=== PATIENT | male | born 1985 | race Caucasian/White ===

== ENCOUNTER 2016-07-29 12:57 | Emergency (ER) | payer BC ==
[~2016-07-29] VITALS: Ht 180.3 cm; Wt 78.5 kg
[~2016-07-29 12:57] MED LIST: AMOX1TAB10 PO; LISI10TA2 PO; OMEP-10 PO; ONDA-42 SL; OXC10TCR PO; PANT20TA3 PO; PRD20T PO; SULF1TAB35 PO; ZOLP12.541 PO
[2016-07-29 13:19] VITALS: BP 136/92
[2016-07-29 14:14] LABS: BASOPHILS % (AUTO) 1 % (0-10); EOSINOPHILS % (AUTO) 1 % (0-10); LYMPHOCYTES # (AUTO) 1.1 X 10^3 (1.0-4.0); LYMPHOCYTES % (AUTO) 36 % (12-44); MEAN CORPUSCULAR HEMOGLOBIN 34 PG (25-34); MEAN CORPUSCULAR HGB CONC 37 G/DL (32-36); MEAN CORPUSCULAR VOLUME 92 FL (80-99); MEAN PLATELET VOLUME 10.3 FL (7.4-10.4); MONOCYTES # (AUTO) 0.5 X 10^3 (0.0-1.0); MONOCYTES % (AUTO) 16 % (0-12); NEUTROPHILS # (AUTO) 1.4 X 10^3 (1.8-7.8); NEUTROPHILS % (AUTO) 46 % (42-75); PLATELET COUNT 125 10^3/uL (130-400); RED BLOOD COUNT 4.69 10^6/uL (4.35-5.85); RED CELL DISTRIBUTION WIDTH 12.1 % (10.0-14.5); WHITE BLOOD COUNT 3.1 10^3/uL (4.3-11.0)
[2016-07-29 14:26] LABS: INR 1.1 (0.8-1.4); PROTHROMBIN TIME PATIENT 13.7 SEC (12.2-14.7)
[2016-07-29 14:32] LABS: BILIRUBIN,URINE NEGATIVE (NEGATIVE); KETONES,URINE NEGATIVE (NEGATIVE); LEUKOCYTE ESTERASE ,URINE NEGATIVE (NEGATIVE); NITRITE,URINE NEGATIVE (NEGATIVE); PH,URINE 6 (5-9); PROTEIN,URINE 1+ (NEGATIVE); UROBILINOGEN,URINE NORMAL (NORMAL)
[2016-07-29 14:34] LABS: ALANINE AMINOTRANSFERASE 228 U/L (0-55); ALBUMIN 3.6 G/DL (3.2-4.5); AMYLASE 67 U/L (25-125); ANION GAP 16 MMOL/L (5-14); ASPARTATE AMINO TRANSFERASE 615 U/L (5-34); BILIRUBIN,TOTAL 1.7 MG/DL (0.1-1.0); BLOOD UREA NITROGEN 7 MG/DL (7-18); BUN/CREATININE RATIO 9; CALCIUM 8.9 MG/DL (8.5-10.1); CARBON DIOXIDE 21 MMOL/L (21-32); CHLORIDE 92 MMOL/L (98-107); CREATINE KINASE 260 U/L (30-200); CREATININE SERUM 0.74 MG/DL (0.60-1.30); GFR ESTIMATED > 60; GLUCOSE 102 MG/DL (70-105); LIPASE 122 U/L (8-78); MAGNESIUM 2.9 MG/DL (1.8-2.4); SODIUM 129 MMOL/L (135-145); TOTAL PROTEIN 8.6 G/DL (6.4-8.2)
[2016-07-29 14:42] LABS: POTASSIUM 3.5 MMOL/L (3.6-5.0)
[2016-07-29 14:47] LABS: SQUAMOUS EPITHELIAL CELL,UR 0-2 /HPF
[2016-07-29] MEDS: NS IV 1000 ML 1,000 ML IV ONE (15:13)
[2016-07-29 15:48] LABS: ALCOHOL 257 MG/DL (<10)
--- NOTE | 2016-07-29 16:12 | ED General ---
General Chief Complaint: General Problems/Pain Stated Complaint: FATIGUE,DIZZINESS,BONE PAIN/MULTIPLE COMPLAINTS Nursing Triage Note: PT STATES HX OF TIA'S WITH LOSS OF VISION AND CHEST DISCOMFORT ABOUT 3 MONTHS AGO. 3 WEEKS AGO HAD EPISODE OF VISION LOSS AND FELT PARALIZED FROM THE WAIST DOWN. TODAY STATES LT EYE VISON "GOES BROWN" AND FEELS SOMETHING IN HIS EYE AND CAN'T DRIVE AT NIGHT BECAUSE HE LOOSES VISION IN LT EYE. STATES EXTREME FATIGUE AND DISORIENTED. LAST NIGHT PT FELL AND JUST SLEPT ON THE FLOOR, DID NOT TRY TO GET UP BECAUSE HIS LOWER EXTREMITIES HURT. PT HAS HAD "LOTS" OF TICK BITES, HX OF CHARLY MOUT[place] SPOTTED FEVER ABOUT A YR AGO. PT HAS LOST OVER 60 LBS IN THE LAST YR. PT TALKING REAL SLOW, PASSED A "LARGE AMOUNT" OF BLOOD IN HIS STOOL A FEW TIMES IN THE LAST COUPLE DAYS. Nursing Sepsis Screen: No Definite Risk Source of Information: Patient, Family Exam Limitations: Intoxication History of Present Illness Time Seen by Provider: 13:09 Initial Comments Mr. Doherty presents to the emergency room with multiple complaints including intermittent episodes of left eye visual disturbances, disorientation, lower extremity weakness, disequilibrium, diffuse pain throughout the lower extremities, new appearance of varicose veins in his feet and ankles, extreme fatigue, and dystaxic movements. Patient has visited his eye doctor but reports no definite pathology identified. He reports Dr. Lora has seen him in the outpatient setting. He reports labs have been relatively normal except for abnormal liver enzymes or hepatitis. Patient reports being tentatively diagnosed with TIAs. These episodes have been recurrent over about a 3 month period of time. Last night he had an episode of weakness and collapsed to the floor. He laid on the floor for an extended period of time. He denied any traumatic injury. He has had a significant weight loss of about 65 pounds over the last year. He reports this is intentional and secondary to dietary changes. His was concerned about the extensive amount of weight loss in that amount of time. Patient admits to daily beer consumption in the range of 10-30 beers per day. He reports cutting back to about 10-15 beers in recent weeks. There is some disagreement in the room between the patient and his regarding quantity. Allergies and Home Medications Allergies Coded Allergies: No Known Drug Allergies (Unverified , 10/25/10) Home Medications Lactulose 20 Gm/30 Ml Solution, 20 GM PO TID, #1000 Prescribed by: RORY MCKEON on 07/29/16 1615 Lisinopril 10 Mg Tablet, 10 MG PO DAILY, #30 Ref 0 Prescribed by: LISA NAJERA on 05/25/15 1338 Oxycodone HCl 10 Mg Tab.er.12h, 10 MG PO Q12H PRN for PAIN, #10 Ref 0 Prescribed by: LISA NAJERA on 05/25/15 1338 Pantoprazole Sodium 20 Mg Tablet.dr, 20 MG PO DAILY, (Reported) Prednisone 20 Mg Tab, 40 MG PO DAILY, #12 Ref 0 Prescribed by: LISA NAJERA on 05/25/15 1338 Zolpidem Tartrate 12.5 Mg Tab.mphase, 12.5 MG PO HS, (Reported) Constitutional: see HPI EENTM: see HPI Respiratory: no symptoms reported Cardiovascular: see HPI Gastrointestinal: no symptoms reported Genitourinary: no symptoms reported Musculoskeletal: see HPI Skin: no symptoms reported Psychiatric/Neurological: See HPI Hematologic/Lymphatic: No Symptoms Reported Immunological/Allergic: no symptoms reported Past Dgqcsvk-Kyufuo-Cuxwnf Hx Patient Social History Alcohol Use: Regular Use Recreational Drug Use: No Smoking Status: Former Smoker Type Used: Cigarettes Former Smoker/When Quit: Apr 27, 2010 Recent Foreign Travel: No Contact w/Someone Who Travel: No Recent Infectious Disease Expo: No Recent Hopitalizations: No Seasonal Allergies Seasonal Allergies: Yes Surgeries HX Surgeries: Yes Surgeries: Orthopedic Respiratory Hx Respiratory Disorders: No Cardiovascular Hx Cardiac Disorders: Yes Cardiac Disorders: Hypertension, Irregular Heartbeat Neurological Hx Neurological Disorders: Yes Neurological Disorders: Spinal Cord Injury, TIA Genitourinary Hx Genitourinary Disorders: No Gastrointestinal Hx Gastrointestinal Disorders: Yes Gastrointestinal Disorders: Gastroesophageal Reflux, Hepatitis (alcoholic), Irritable Bowel Musculoskeletal Hx Musculoskeletal Disorders: Yes Musculoskeletal Disorders: Chronic Back Pain Endocrine Hx Endocrine Disorders: No HEENT HX ENT Disorders: No Loss of Vision: Left Cancer Hx Cancer: No Psychosocial Hx Psychiatric Problems: Yes (DEPRESSION WHEN YOUNGER, alcoholism) Behavioral Health Disorders: Depression Integumentary HX Skin/Integumentary Disorder: No Blood Transfusions Hx Blood Disorders: No Family Medical History Significant Family History: No Pertinent Family Hx Physical Exam Vital Signs Vital Sign - Last 12Hours 07/29/16 13:19 Temp 99.1 Pulse 76 Resp 18 B/P (MAP) 136/92 Pulse Ox 98 O2 Delivery Room Air Capillary Refill : Less Than 3 Seconds General Appearance: No Apparent Distress, WD/WN HEENT: PERRL/EOMI, TMs Normal, Normal ENT Inspection, Pharynx Normal, Other ( funduscopic exam normal to the extent that could be performed. Scleral injection and conjunctival erythema) Neck: Normal Inspection Respiratory: Lungs Clear, Normal Breath Sounds, No Accessory Muscle Use, No Respiratory Distress Cardiovascular: Regular Rate, Rhythm, No Edema, No Murmur Gastrointestinal: Normal Bowel Sounds, No Organomegaly, Soft, Tenderness (mild in the epigastrium and left upper quadrant) Extremity: No Pedal Edema, Other (small varicosities and ankles) Neurologic/Psychiatric: Alert, Oriented x3, Motor Weakness (diffuse generalized weakness), Other (relatively normal gait, able to ambulate to the room on his own power, subtle dystonic/dystaxic movements on exam, dulled cognition with slow and slightly slurred speech) Skin: Normal Color, Warm/Dry Progress/Results/Core Measures Results/Orders Lab Results Laboratory Tests Test 07/29/16 14:00 07/29/16 14:09 07/29/16 14:25 07/29/16 15:16 Range/Units White Blood Count 3.1 L 4.3-11.0 10^3/uL Red Blood Count 4.69 4.35-5.85 10^6/uL Hemoglobin 15.9 13.3-17.7 G/DL Hematocrit 43 40-54 % Mean Corpuscular Volume 92 80-99 FL Mean Corpuscular Hemoglobin 34 25-34 PG Mean Corpuscular Hemoglobin Concent 37 H 32-36 G/DL Red Cell Distribution Width 12.1 10.0-14.5 % Platelet Count 125 L 130-400 10^3/uL Mean Platelet Volume 10.3 7.4-10.4 FL Neutrophils (%) (Auto) 46 42-75 % Lymphocytes (%) (Auto) 36 12-44 % Monocytes (%) (Auto) 16 H 0-12 % Eosinophils (%) (Auto) 1 0-10 % Basophils (%) (Auto) 1 0-10 % Neutrophils # (Auto) 1.4 L 1.8-7.8 X 10^3 Lymphocytes # (Auto) 1.1 1.0-4.0 X 10^3 Monocytes # (Auto) 0.5 0.0-1.0 X 10^3 Eosinophils # (Auto) 0.0 0.0-0.3 10^3/uL Basophils # (Auto) 0.0 0.0-0.1 10^3/uL Prothrombin Time 13.7 12.2-14.7 SEC INR Comment 1.1 0.8-1.4 Activated Partial Thromboplast Time 32 24-35 SEC Sodium Level 129 L 135-145 MMOL/L Potassium Level 3.5 L 3.6-5.0 MMOL/L Chloride Level 92 L 98-107 MMOL/L Carbon Dioxide Level 21 21-32 MMOL/L Anion Gap 16 H 5-14 MMOL/L Blood Urea Nitrogen 7 7-18 MG/DL Creatinine 0.74 0.60-1.30 MG/DL Estimat Glomerular Filtration Rate > 60 BUN/Creatinine Ratio 9 Glucose Level 102 70-105 MG/DL Calcium Level 8.9 8.5-10.1 MG/DL Magnesium Level 2.9 H 1.8-2.4 MG/DL Total Bilirubin 1.7 H 0.1-1.0 MG/DL Aspartate Amino Transf (AST/SGOT) 615 H 5-34 U/L Alanine Aminotransferase (ALT/SGPT) 228 H 0-55 U/L Alkaline Phosphatase 83 40-136 U/L Total Creatine Kinase 260 H 30-200 U/L Total Protein 8.6 H 6.4-8.2 G/DL Albumin 3.6 3.2-4.5 G/DL Amylase Level 67 25-125 U/L Lipase 122 H 8-78 U/L TSH Story Testing 1.46 0.35-4.94 UIU/ML Serum Alcohol 257 H <10 MG/DL Glucometer 101 70-110 MG/DL Urine Color YELLOW Urine Clarity CLEAR Urine pH 6 5-9 Urine Specific [place] 1.010 L 1.016-1.022 Urine Protein 1+ H NEGATIVE Urine Glucose (UA) NEGATIVE NEGATIVE Urine Ketones NEGATIVE NEGATIVE Urine Nitrite NEGATIVE NEGATIVE Urine Bilirubin NEGATIVE NEGATIVE Urine Urobilinogen NORMAL NORMAL MG/DL Urine Leukocyte Esterase NEGATIVE NEGATIVE Urine RBC (Auto) NEGATIVE NEGATIVE Urine RBC 0-2 /HPF Urine WBC NONE /HPF Urine Squamous Epithelial Cells 0-2 /HPF Urine Crystals NONE /LPF Urine Bacteria NEGATIVE /HPF Urine Casts NONE /LPF Urine Mucus NEGATIVE /LPF Urine Culture Indicated NO Urine Opiates Screen POSITIVE H NEGATIVE Urine Oxycodone Screen NEGATIVE NEGATIVE Urine Methadone Screen NEGATIVE NEGATIVE Urine Propoxyphene Screen NEGATIVE NEGATIVE Urine Barbiturates Screen NEGATIVE NEGATIVE Ur Tricyclic Antidepressants Screen NEGATIVE NEGATIVE Urine Phencyclidine Screen NEGATIVE NEGATIVE Urine Amphetamines Screen NEGATIVE NEGATIVE Urine Methamphetamines Screen NEGATIVE NEGATIVE Urine Benzodiazepines Screen NEGATIVE NEGATIVE Urine Cocaine Screen NEGATIVE NEGATIVE Urine Cannabinoids Screen NEGATIVE NEGATIVE Triglycerides Level 3785 H <150 MG/DL Cholesterol Level 600 H < 200 MG/DL LDL Cholesterol Direct 64 1-129 MG/DL VLDL Cholesterol 757 H 5-40 MG/DL HDL Cholesterol 16 L 40-60 MG/DL My Orders Orders - RORY DOYLE MD Cbc With Automated Diff (07/29/16 13:08) Comprehensive Metabolic Panel (07/29/16 13:08) Ua Culture If Indicated (07/29/16 13:08) Saline Lock/Iv-Start (07/29/16 13:08) Alcohol (07/29/16 13:38) Amylase (07/29/16 13:38) Creatine Kinase (07/29/16 13:38) Drug Screen Stat (Urine) (07/29/16 13:38) Lipase (07/29/16 13:38) Magnesium (07/29/16 13:38) Protime With Inr (07/29/16 13:38) Partial Thromboplastin Time (07/29/16 13:38) Thyroid Analyzer (07/29/16 13:38) Ammonia (07/29/16 13:56) Accucheck Stat ONCE (07/29/16 14:06) Ns Iv 1000 Ml (Sodium Chloride 0.9%) (07/29/16 15:05) Lipid Panel (07/29/16 16:34) Medications Given in ED Current Medications Medications Dose Ordered Sig/Lilli Route Start Time Stop Time Status Last Admin Dose Admin Sodium Chloride 1,000 ml @ 0 mls/hr Q0M ONCE IV 07/29/16 15:05 07/29/16 15:06 DC 07/29/16 15:13 1,000 MLS/HR Vital Signs/I&O Vital Sign - Last 12Hours 07/29/16 13:19 Temp 99.1 Pulse 76 Resp 18 B/P (MAP) 136/92 Pulse Ox 98 O2 Delivery Room Air Blood Pressure Mean: 107 Point of Care Testing Finger Stick Blood Glucose: 101 Blood Glucose Action Taken: DR ROLDAN Progress Note #1: Progress Note Patient received a liter of normal saline and was already improving after infusion was complete. Patient was strongly advised to be admitted for further treatment and monitoring of his labs. Risks of returning home were discussed at length. Patient has several alcohol related health problems which could potentially become very serious. Patient expressed understanding but declined admission. Lactulose was prescribed for him to start at home. Patient was advised that abrupt cessation of alcohol could be very dangerous and possibly life-threatening. Both short-term and long-term risks and consequences of continued alcohol abuse were discussed with patient and family. Family strongly encouraged patient to be admitted and they were naturally very concerned. Admission was arranged with Dr. Lainez. Progress Note #2: Time: 16:26 Progress Note Patient left AGAINST MEDICAL ADVICE. After he departed, lab called to state that the difficulty with dilution on the ammonia test appears to be related to lipemia. If the blood is diluted out enough to read past the lipemia, then the ammonia is too diluted to detect. A specimen will be sent to [place] for further evaluation. No definite quantification of ammonia could be provided at this time. Departure Impression Impression: Primary Impression: Hepatic encephalopathy Additional Impressions: Hyponatremia Rhabdomyolysis Qualified Codes: M62.82 - Rhabdomyolysis Alcoholic hepatitis Qualified Codes: K70.10 - Alcoholic hepatitis without ascites Alcoholism Pancreatitis Qualified Codes: K85.20 - Alcohol induced acute pancreatitis without necrosis or infection Hyperlipidemia Qualified Codes: E78.5 - Hyperlipidemia, unspecified Disposition: 07 AGAINST MEDICAL ADVICE Condition: Against Medical Advice Departure-Patient Inst. Referrals: ABE LORA MD (PCP/Family) Primary Care Physician Patient Instructions: Alcohol Abuse and Alcoholism (DC), Hepatic Encephalopathy , Hyponatremia, Pancreatitis Scripts Lactulose (Lactulose) 20 Gm/30 Ml Solution 20 GM PO TID, #1000 EA Prov: RORY DOYLE MD 07/29/16 Copy Copies To 1: ABE LORA MD, JOSHUA T MD Jul 29, 2016 16:12
[2016-07-29] MEDS ORDERED: LACT20SO2 PO (16:15)
[2016-07-29 16:49] LABS: CHOLESTEROL 600 MG/DL (< 200); DIRECT LDL 64 MG/DL (1-129)
[2016-07-29 16:56] LABS: TRIGLYCERIDES 3785 MG/DL (<150); VLDL CHOLESTEROL 757 MG/DL (5-40)
== END 2016-07-29 16:20 | disposition left against medical advice (07) ==
LOC: EDUNIT# 12:57 → ER 13:00
DX: K70.40 Alcoholic hepatic failure without coma (principal); E87.1 Hypo-osmolality and hyponatremia; M62.82 Rhabdomyolysis; K70.10 Alcoholic hepatitis without ascites; E78.5 Hyperlipidemia, unspecified; F10.229 Alcohol dependence with intoxication, unspecified; K85.20 Alcohol induced acute pancreatitis without necrosis or infection; I10 Essential (primary) hypertension; Z79.899 Other long term (current) drug therapy; Y90.8 Blood alcohol level of 240 mg/100 ml or more
CPT/HCPCS: 36415; 80053; 80061; 80306; 80320; 81000; 82140; 82150; 82550; 82962; 83690; 83735; 84443; 85025; 85610; 85730

== ENCOUNTER 2017-06-06 13:52 | Emergency (ER) | payer BC ==
[~2017-06-06] VITALS: Ht 180.3 cm; Wt 99.8 kg
[~2017-06-06 13:52] MED LIST changes: +LACT20SO2 PO
--- OUTSIDE RECORDS SUMMARY | 2017-06-06 13:57 | XMS REPORT | Continuity of Care Document ---
Author Author [facility] Organization [facility] Address Unknown Phone Unavailable Allergies Active Description Code Type Severity Reaction Onset Reported/Identified Relationship to Patient Clinical Status Yes No Known Drug Allergies [id number] Drug Allergy Unknown N/A 10/25/2010 Medications There is no data. 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 10/25/2010 Ot E000.8 OTHER EXTERNAL CAUSE STATUS 10/25/2010 Ot E849.0 ACCIDENT IN HOME 10/25/2010 Ot E914 FB ENTERING EYE 06/19/2013 BEAU SCHERER DO Ot 305.00 ALCOHOL ABUSE-UNSPEC 06/19/2013 BEAU SCHERER DO Ot 599.0 URIN TRACT INFECTION NOS 06/19/2013 BEAU SCHERER DO Ot 787.01 NAUSEA WITH VOMITING 06/09/2014 Ot 723.1 06/09/2014 Ot 724.1 06/10/2014 Ot 723.1 06/10/2014 Ot 724.1 06/17/2014 Ot 723.1 06/17/2014 Ot 724.1 07/11/2014 Ot 723.1 07/11/2014 Ot 724.1 05/25/2015 Ot 723.1 05/25/2015 Ot 724.1 05/25/2015 LISA NAJERA MD Ot F10.239 ALCOHOL DEPENDENCE WITH WITHDRAWAL, UNSP 05/25/2015 LISA NAJERA MD Ot I10 ESSENTIAL (PRIMARY) HYPERTENSION 05/25/2015 LISA NAJERA MD Ot M54.12 RADICULOPATHY, CERVICAL REGION 05/25/2015 LISA NAJERA MD Ot M54.16 RADICULOPATHY, LUMBAR REGION 05/25/2015 LISA NAJERA MD Ot Z87.891 PERSONAL HISTORY OF NICOTINE DEPENDENCE 05/26/2015 LISA NAJERA MD Ot F10.239 05/26/2015 DANIA HICKEY, LISA D Ot I10 05/26/2015 DANIA HICKEY, LISA D Ot M54.12 05/26/2015 DANIA HICKEY, LISA D Ot M54.16 05/26/2015 DANIA HICKEY, LISA D Ot Z87.891 06/05/2015 DANIA HICKEY, LISA D Ot F10.239 06/05/2015 DANIA HICKEY, LISA D Ot I10 06/05/2015 DANIA HICKEY, LISA D Ot M54.12 06/05/2015 DANIA HICKEY, LISA D Ot M54.16 06/05/2015 DANIA HICKEY, LISA D Ot Z87.891 07/14/2015 ABE CARUSO MD Ot M54.2 CERVICALGIA 07/14/2015 ABE CARUSO MD Ot M54.5 LOW BACK PAIN 07/14/2015 ABE CARUSO MD Ot M54.6 PAIN IN THORACIC SPINE 07/29/2015 ABE CARUSO MD Ot M54.2 CERVICALGIA 07/29/2015 ABE CARUSO MD Ot M54.5 LOW BACK PAIN 07/29/2015 ABE CARUSO MD Ot M54.6 PAIN IN THORACIC SPINE 12/23/2015 CRISELDA ROMERO MD Ot M54.6 PAIN IN THORACIC SPINE 12/24/2015 ABE CARUSO MD Ot M54.2 CERVICALGIA 12/24/2015 ABE CARUSO MD Ot M54.5 LOW BACK PAIN 12/24/2015 ABE CARUSO MD Ot M54.6 PAIN IN THORACIC SPINE 12/24/2015 CRISELDA ROMERO MD Ot M54.6 PAIN IN THORACIC SPINE 12/28/2015 CRISELDA ROMERO MD Ot M54.6 PAIN IN THORACIC SPINE 01/07/2016 CRISELDA ROMERO MD Ot M54.6 PAIN IN THORACIC SPINE 03/17/2016 BAE CARUSO MD Ot M54.2 CERVICALGIA 03/17/2016 ABE CARUSO MD Ot M54.5 LOW BACK PAIN 03/17/2016 ABE CARUSO MD Ot M54.6 PAIN IN THORACIC SPINE 03/17/2016 CRISELDA ROMERO MD Ot M54.6 PAIN IN THORACIC SPINE 03/22/2016 ABE CARUSO MD Ot M54.2 CERVICALGIA 03/22/2016 ABE CARUSO MD Ot M54.5 LOW BACK PAIN 03/22/2016 ABE CARUSO MD Ot M54.6 PAIN IN THORACIC SPINE 03/22/2016 CRISELDA ROMERO MD Ot M54.6 PAIN IN THORACIC SPINE 07/29/2016 ABE CARUSO MD Ot M54.2 CERVICALGIA 07/29/2016 ABE CARUSO MD Ot M54.5 LOW BACK PAIN 07/29/2016 ABE CARUSO MD Ot M54.6 PAIN IN THORACIC SPINE 07/29/2016 CRISELDA ROMERO MD Ot M54.6 PAIN IN THORACIC SPINE 07/29/2016 RORY DOYLE MD Ot E78.5 HYPERLIPIDEMIA, UNSPECIFIED 07/29/2016 RORY DOYLE MD Ot E87.1 HYPO-OSMOLALITY AND HYPONATREMIA 07/29/2016 RORY DOYLE MD Ot F10.229 ALCOHOL DEPENDENCE WITH INTOXICATION, UN 07/29/2016 RORY DOYLE MD Ot I10 ESSENTIAL (PRIMARY) HYPERTENSION 07/29/2016 RORY DOYLE MD Ot K70.10 ALCOHOLIC HEPATITIS WITHOUT ASCITES 07/29/2016 RORY DOYLE MD Ot K70.40 ALCOHOLIC HEPATIC FAILURE WITHOUT COMA 07/29/2016 RORY DOYLE MD Ot K85.20 ALCOHOL INDUCED ACUTE PANCREATITIS WITHO 07/29/2016 RORY DOYLE MD Ot M62.82 RHABDOMYOLYSIS 07/29/2016 RORY DOYLE MD Ot R53.83 OTHER FATIGUE 07/29/2016 RORY DOYLE MD Ot Y90.8 BLOOD ALCOHOL LEVEL OF 240 MG/100 ML OR 07/29/2016 RORY DOYLE MD Ot Z79.899 OTHER [facility] (CURRENT) DRUG THERAPY 07/31/2016 RORY DOYLE MD Ot E78.5 HYPERLIPIDEMIA, UNSPECIFIED 07/31/2016 RORY DOYLE MD Ot E87.1 HYPO-OSMOLALITY AND HYPONATREMIA 07/31/2016 RORY DOYLE MD Ot F10.229 ALCOHOL DEPENDENCE WITH INTOXICATION, UN 07/31/2016 RORY DOYLE MD Ot I10 ESSENTIAL (PRIMARY) HYPERTENSION 07/31/2016 RORY DOYLE MD Ot K70.10 ALCOHOLIC HEPATITIS WITHOUT ASCITES 07/31/2016 RORY DOYLE MD Ot K70.40 ALCOHOLIC HEPATIC FAILURE WITHOUT COMA 07/31/2016 RORY DOYLE MD Ot K85.20 ALCOHOL INDUCED ACUTE PANCREATITIS WITHO 07/31/2016 RORY DOYLE MD Ot M62.82 RHABDOMYOLYSIS 07/31/2016 RORY DOYLE MD Ot R53.83 OTHER FATIGUE 07/31/2016 RORY DOYLE MD Ot Y90.8 BLOOD ALCOHOL LEVEL OF 240 MG/100 ML OR 07/31/2016 RORY DOYLE MD Ot 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 07/31/2016 RORY DOYLE MD Ot E78.5 HYPERLIPIDEMIA, UNSPECIFIED 07/31/2016 RORY DOYLE MD Ot E87.1 HYPO-OSMOLALITY AND HYPONATREMIA 07/31/2016 RORY DOYLE MD Ot F10.229 ALCOHOL DEPENDENCE WITH INTOXICATION, UN 07/31/2016 RORY DOYLE MD Ot I10 ESSENTIAL (PRIMARY) HYPERTENSION 07/31/2016 RORY DOYLE MD Ot K70.10 ALCOHOLIC HEPATITIS WITHOUT ASCITES 07/31/2016 RORY DOYLE MD Ot K70.40 ALCOHOLIC HEPATIC FAILURE WITHOUT COMA 07/31/2016 RORY DOYLE MD Ot K85.20 ALCOHOL INDUCED ACUTE PANCREATITIS WITHO 07/31/2016 RORY DOYLE MD Ot M62.82 RHABDOMYOLYSIS 07/31/2016 RORY DOYLE MD Ot R53.83 OTHER FATIGUE 07/31/2016 RORY DOYLE MD Ot Y90.8 BLOOD ALCOHOL LEVEL OF 240 MG/100 ML OR 07/31/2016 RORY DOYLE MD Ot Z79.899 OTHER [facility] (CURRENT) DRUG THERAPY 01/11/2017 ZULY HICKEY, ABE Little Ot M54.2 CERVICALGIA 01/11/2017 ABE CARUSO MD, Ot M54.5 LOW BACK PAIN 01/11/2017 ABE CARUSO MD Ot M54.6 PAIN IN THORACIC SPINE 01/11/2017 CRISELDA ROMERO MD Ot M54.6 PAIN IN THORACIC SPINE Procedures There is no data. Results Test Result Range Complete blood count (CBC) with automated white blood cell (WBC) differential - 07/29/16 14:00 Blood leukocytes automated count (number/volume) 3.1 10*3/uL 4.3-11.0 Blood erythrocytes automated count (number/volume) 4.69 10*6/uL 4.35-5.85 Venous blood hemoglobin measurement (mass/volume) 15.9 g/dL 13.3-17.7 Blood hematocrit (volume fraction) 43 % 40-54 Automated erythrocyte mean corpuscular volume 92 [foz_us] 80-99 Automated erythrocyte mean corpuscular hemoglobin (mass per erythrocyte) 34 pg 25-34 Automated erythrocyte mean corpuscular hemoglobin concentration measurement ( mass/volume) 37 g/dL 32-36 Automated erythrocyte distribution width ratio 12.1 % 10.0-14.5 Automated blood platelet count (count/volume) 125 10*3/uL 130-400 Automated blood platelet mean volume measurement 10.3 [foz_us] 7.4-10.4 Automated blood neutrophils/100 leukocytes 46 % 42-75 Automated blood lymphocytes/100 leukocytes 36 % 12-44 Blood monocytes/100 leukocytes 16 % 0-12 Automated blood eosinophils/100 leukocytes 1 % 0-10 Automated blood basophils/100 leukocytes 1 % 0-10 Blood neutrophils automated count (number/volume) 1.4 10*3 1.8-7.8 Blood lymphocytes automated count (number/volume) 1.1 10*3 1.0-4.0 Blood monocytes automated count (number/volume) 0.5 10*3 0.0-1.0 Automated eosinophil count 0.0 10*3/uL 0.0-0.3 Automated blood basophil count (count/volume) 0.0 10*3/uL 0.0-0.1 PT panel in platelet poor plasma by coagulation assay - 07/29/16 14:00 Prothrombin time (PT) in platelet poor plasma by coagulation assay 13.7 s 12.2-14.7 INR in platelet poor plasma or blood by coagulation assay 1.1 0.8-1.4 Activated partial thromboplastin time (aPTT) in platelet poor plasma bycoagulation assay - 07/29/16 14:00 Activated partial thromboplastin time (aPTT) in platelet poor plasma bycoagulation assay 32 s 24-35 Comprehensive metabolic panel - 07/29/16 14:00 Serum or plasma sodium measurement (moles/volume) 129 mmol/L 135-145 Serum or plasma potassium measurement (moles/volume) 3.5 mmol/L 3.6-5.0 Serum or plasma chloride measurement (moles/volume) 92 mmol/L 98-107 Carbon dioxide 21 mmol/L 21-32 Serum or plasma anion gap determination (moles/volume) 16 mmol/L 5-14 Serum or plasma urea nitrogen measurement (mass/volume) 7 mg/dL 7-18 Serum or plasma creatinine measurement (mass/volume) 0.74 mg/dL 0.60-1.30 Serum or plasma urea nitrogen/creatinine mass ratio 9 NRG Serum or plasma creatinine measurement with calculation of estimated glomerular filtration rate > NRG Serum or plasma glucose measurement (mass/volume) 102 mg/dL 70-105 Serum or plasma calcium measurement (mass/volume) 8.9 mg/dL 8.5-10.1 Serum or plasma total bilirubin measurement (mass/volume) 1.7 mg/dL 0.1-1.0 Serum or plasma alkaline phosphatase measurement (enzymatic activity/volume) 83 U/L 40-136 Serum or plasma aspartate aminotransferase measurement (enzymatic activity/ volume) 615 U/L 5-34 Serum or plasma alanine aminotransferase measurement (enzymatic activity/volume ) 228 U/L 0-55 Serum or plasma protein measurement (mass/volume) 8.6 g/dL 6.4-8.2 Serum or plasma albumin measurement (mass/volume) 3.6 g/dL 3.2-4.5 Magnesium - 07/29/16 14:00 Magnesium 2.9 mg/dL 1.8-2.4 Serum or plasma creatine kinase measurement (enzymatic activity/volume) - 07/29 14:00 Serum or plasma creatine kinase measurement (enzymatic activity/volume) 260 U/L 30-200 Serum or plasma amylase measurement (enzymatic activity/volume) - 07/29/16 14: 00 Serum or plasma amylase measurement (enzymatic activity/volume) 67 U /L 25-125 Lipase - 07/29/16 14:00 Lipase 122 U/L 8-78 Serum or plasma thyrotropin measurement by detection limit <=0.05 miu/l (units/ volume) - 07/29/16 14:00 Serum or plasma thyrotropin measurement by detection limit <=0.05 miu/l (units/ volume) 1.46 u[iU]/mL 0.35-4.94 Serum or plasma ethanol measurement (mass/volume) - 07/29/16 14:00 Serum or plasma ethanol measurement (mass/volume) 257 mg/dL <10 Capillary blood glucose measurement by glucometer (mass/volume) - 07/29/16 14: 09 Capillary blood glucose measurement by glucometer (mass/volume) 101 mg/dL 70-110 Complete urinalysis with reflex to culture - 07/29/16 14:25 Urine color determination YELLOW NRG Urine clarity determination CLEAR NRG Urine pH measurement by test strip 6 5-9 Specific gravity of urine by test strip 1.010 1.016- 1.022 Urine protein assay by test strip, semi-quantitative 1+ NEGATIVE Urine glucose detection by automated test strip NEGATIVE NEGATIVE Erythrocytes detection in urine sediment by light microscopy NEGATIVE NEGATIVE Urine ketones detection by automated test strip NEGATIVE NEGATIVE Urine nitrite detection by test strip NEGATIVE NEGATIVE Urine total bilirubin detection by test strip NEGATIVE NEGATIVE Urine urobilinogen measurement by automated test strip (mass/volume) NORMAL NORMAL Urine leukocyte esterase detection by dipstick NEGATIVE NEGATIVE Automated urine sediment erythrocyte count by microscopy (number/high power field) [HPF] NRG Automated urine sediment leukocyte count by microscopy (number/high power field ) NONE NRG Bacteria detection in urine sediment by light microscopy NEGATIVE NRG Squamous epithelial cells detection in urine sediment by light microscopy 0-2 NRG Crystals detection in urine sediment by light microscopy NONE NRG Casts detection in urine sediment by light microscopy NONE NRG Mucus detection in urine sediment by light microscopy NEGATIVE NRG Complete urinalysis with reflex to culture NO NRG Urine drug screening test - 07/29/16 14:25 Urine phencyclidine detection by screening method NEGATIVE NEGATIVE Urine benzodiazepines detection by screening method NEGATIVE NEGATIVE Urine cocaine detection NEGATIVE NEGATIVE Urine amphetamines detection by screening method NEGATIVE NEGATIVE Urine methamphetamine detection by screening method NEGATIVE NEGATIVE Urine cannabinoids detection by screening method NEGATIVE NEGATIVE Urine opiates detection by screening method POSITIVE NEGATIVE Urine barbiturates detection NEGATIVE NEGATIVE Screening urine tricyclic antidepressants detection NEGATIVE NEGATIVE Urine methadone detection by screening method NEGATIVE NEGATIVE Urine oxycodone detection NEGATIVE NEGATIVE Urine propoxyphene detection NEGATIVE NEGATIVE Lipid 1996 panel - 07/29/16 15:16 Serum or plasma triglyceride measurement (mass/volume) 3785 mg/dL <150 Serum or plasma cholesterol measurement (mass/volume) 600 mg/dL < 200 Serum or plasma cholesterol in HDL measurement (mass/volume) 16 mg/ dL 40-60 Cholesterol in LDL [mass/volume] in serum or plasma by direct assay 64 mg/dL 1-129 Serum or plasma cholesterol in VLDL measurement (mass/volume) 757 mg /dL 5-40 Encounters ACCT No. Visit Date/Time Discharge Status Pt. Type Provider Facility Loc./Unit Complaint [id number] 07/29/2016 13:00:00 07/29/2016 16:20:00 DIS Emergency YANIRA HICKEY, RORY Hewitt [facility] ER FATIGUE,DIZZINESS, BONE PAIN/MULTIPLE COMPLAINTS [id number] 12/22/2015 13:10:00 12/22/2015 23:59:59 CLS Outpatient HEATHER HICKEY, CRISELDA Brooke [facility] RAD PAIN IN THORACIC SPINE [id number] 07/13/2015 09:31:00 07/13/2015 23:59:59 CLS Outpatient ZULY HICKEY, ABE Little [facility] RAD NECK PAIN, MID BACK AND LUMBAR PAIN [id number] 05/25/2015 10:56:00 05/25/2015 13:49:00 DIS Emergency LISA NAJERA MD [facility] ER HTN/BACK PAIN [id number] 06/19/2013 14:04:00 06/19/2013 17:28:00 DIS Emergency BEAU SCHERER DO [facility] ER POSS FOOD POISONING [id number] 10/25/2010 21:04:00 Document Registration [id number] 01/25/2010 15:02:00 Document Registration
--- NOTE | 2017-06-06 14:07 | ED Head Injury ---
General Chief Complaint: Laceration Stated Complaint: FALL,RT EYE LAC Source: patient Exam Limitations: no limitations History of Present Illness Date Seen by Provider: Jun 06, 2017 Time Seen by Provider: 14:05 Initial Comments To ER with reports of a right eyebrow laceration. Patient states that he was at home cooking dinner when he developed hiccups. He held his breath and beared down describing a Valsalva maneuver trying to cure the hiccups. He then awakened on the floor. He feels back to normal now with the exception of a headache. His is at the bedside and states that immediately after this happened he did seem a little disoriented. Occurred: just prior to arrival Severity: mild Location: frontal Allergies and Home Medications Allergies Coded Allergies: No Known Drug Allergies (Unverified , 10/25/10) Home Medications Lactulose 20 Gm/30 Ml Solution, 20 GM PO TID Prescribed by: RORY MCKEON on 07/29/16 1615 Lisinopril 10 Mg Tablet, 10 MG PO DAILY Prescribed by: LISA NAJERA on 05/25/15 1338 Oxycodone HCl 10 Mg Tab.er.12h, 10 MG PO Q12H PRN for PAIN Prescribed by: LISA NAJERA on 05/25/15 1338 Pantoprazole Sodium 20 Mg Tablet.dr, 20 MG PO DAILY, (Reported) Zolpidem Tartrate 12.5 Mg Tab.mphase, 12.5 MG PO HS, (Reported) Patient Home Medication List Home Medication List Reviewed: Yes Review of Systems Constitutional: see HPI Eyes: See HPI Ears, Nose, Mouth, Throat: no symptoms reported Respiratory: no symptoms reported Cardiovascular: no symptoms reported Genitourinary: no symptoms reported Musculoskeletal: no symptoms reported Skin: no symptoms reported Psychiatric/Neurological: No Symptoms Reported Endocrine: No Symptoms Reported Past Tyilvgz-Mhprhp-Ajvvsd Hx Patient Social History Alcohol Beverage of Choice: Beer Type Used: Cigarettes Former Smoker, Quit: Jul 28, 2009 Recent Foreign Travel: No Contact w/Someone Who Travel: No Recent Hopitalizations: No Seasonal Allergies Seasonal Allergies: Yes Past Medical History Surgeries: Yes (CYST REMOVAL, CARPAL TUNNEL, ULNAR NERVE RELEASE) Orthopedic Respiratory: No Cardiac: Yes Hypertension, Irregular Heartbeat Neurological: Yes Spinal Cord Injury, TIA Genitourinary: No Gastrointestinal: Yes Gastroesophageal Reflux, Hepatitis, Irritable Bowel Musculoskeletal: Yes Chronic Back Pain Endocrine: No 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 Cancer: No Psychosocial: Yes (DEPRESSION WHEN YOUNGER) Depression Integumentary: No Blood Disorders: No Family Medical History No Pertinent Family Hx Physical Exam Vital Signs Vital Signs - First Documented 06/06/17 13:56 Temp 98.0 Pulse 74 Resp 18 B/P (MAP) 110/81 (91) Pulse Ox 98 Capillary Refill : General Appearance: WD/WN, no apparent distress HEENT: PERRL/EOMI, normal ENT inspection, TMs normal, other (1.5 cm laceration to the lateral aspect of the right eyebrow depth to the subcutaneous cutaneous tissues) Neck: non-tender, full range of motion Cardiovascular: regular rate, rhythm, no murmur Respiratory: normal breath sounds, no respiratory distress, no accessory muscle use Gastrointestinal: normal bowel sounds, non tender, soft Extremities: normal range of motion, non-tender Psychiatric: alert, oriented x 3 Crainal Nerves: normal hearing, normal speech Skin: normal color, warm/dry GCS 15 he recalls all events. [place] Coma Score Best Eye Response: (4) Open Spontaneously Best Verbal Response: (5) Oriented Best Motor Response: (6) Obeys Commands [place] Total: 15 Procedures/Interventions Wound Location: Face Wound Length (cm): 1 Wound's Depth, Shape: linear Wound Explored: clean Irrigated w/ Saline (ccs): 30 Anesthesia: Lidocaine w/ Epi Volume Anesthetic (ccs): 1 Suture: Prolene Suture Size: 5-0 Number of Sutures: 3 Layer Closure?: 1 Number Deep Layer Sutures: 0 Area anesthetized with 1 mL of 2% lidocaine with epinephrine. Wound then scrubbed with Betadine/saline solution and irrigated with same. Closed with 3 simple interrupted sutures size 5-0 Prolene. Progress/Results/Core Measures My Orders Orders - MIGUEL ANGEL SAHU [employer] Lidocaine/Epi 2% 1:100,000 (Xylocaine/Ep (06/06/17 14:15) Ct Head Wo (06/06/17 14:04) Dipht,Pertuss(Acell),Tet Adult (Boostrix (06/06/17 14:15) Medications Given in ED Current Medications Medications Dose Ordered Sig/Lilli Route Start Time Stop Time Status Last Admin Dose Admin Diphtheria/ Tetanus/Acell Pertussis 0.5 ml ONCE ONCE IM 06/06/17 14:15 06/06/17 14:16 DC 06/06/17 14:25 0.5 ML Lidocaine/ Epinephrine 2 ml ONCE ONCE INJ 06/06/17 14:15 06/06/17 14:16 DC 06/06/17 14:26 2 ML Vital Signs/I&O 06/06/17 13:56 Temp 98.0 Pulse 74 Resp 18 B/P (MAP) 110/81 (91) Pulse Ox 98 Diagonstic Imaging: CT Comments NAME: ABIGAIL KASPER MED REC#: [id number] PT STATUS: REG ER : 1985 PHYSICIAN: MIGUEL ANGEL SAHU [employer] ADMIT DATE: 06/06/17/ER Draft Date of Exam:06/06/17 CT HEAD WO PROCEDURE: CT head without contrast. TECHNIQUE: Multiple contiguous axial images were obtained through the brain without the use of intravenous contrast. INDICATION: Syncopal episode with head injury. COMPARISON: None. FINDINGS: No acute intracranial hemorrhage, mass effect, or edema is seen. The mcintosh/white junction is preserved. The ventricles appear normal. No focal abnormality is seen. There is some mucosal thickening in the ethmoid and frontal sinuses. IMPRESSION: No evidence of an acute intracranial abnormality. Mild ethmoid and frontal sinus inflammatory change. Dictated on workstation # [id number] Dict: 06/06/17 1432 Trans: 06/06/17 1438 [id number] Interpreted by: LAURA LAMB DO Electronically signed by: Departure Communication (Admissions) CT shows changes of frontal and ethmoid sinus consistent with sinusitis. He does report some pressure behind his eyes recently. I'll send insome antibiotics. Impression Primary Impression: Concussion Additional Impressions: Eyebrow laceration Vasovagal syncope Frontal sinusitis Disposition: 01 HOME, SELF-CARE Condition: Stable Departure-Patient Inst. Decision time for Depature: 14:07 Referrals: ABE CARUSO MD (PCP/Family) Primary Care Physician Patient Instructions: Laceration Repair With Stitches (DC) Add. Discharge Instructions: 1. Return to ER for any concerns 2. Return to the emergency room to have the stitches removed in about 5-7 days at your convenience. Scripts Amoxicillin/Potassium Clav (Augmentin 875-125 Tablet) 1 Each Tablet 1 EACH PO BID, #20 TAB Prov: MIGUEL ANGEL SAHU APRN 06/06/17 MIGUEL ANGEL SAHU APRN Jun 06, 2017 14:07
[2017-06-06] MEDS ORDERED: ZOLP12.546 (14:12)
[2017-06-06] MEDS ORDERED: AMIT10TA6 (14:12)
[2017-06-06] MEDS ORDERED: TETANUS,DIPTH,PERTUSS P/F (BOOSTRIX) 0.5 ML VIAL IM ONE (14:15)
[2017-06-06] MEDS ORDERED: LIDOCAINE/EPI 2% 1:100,00 (XYLOCAINE) 20 ML VIAL INJ ONE (14:15)
--- NOTE | 2017-06-06 14:39 | Diagnostic Imaging Report ---
PROCEDURE: CT head without contrast. TECHNIQUE: Multiple contiguous axial images were obtained through the brain without the use of intravenous contrast. INDICATION: Syncopal episode with head injury. COMPARISON: None. FINDINGS: No acute intracranial hemorrhage, mass effect, or edema is seen. The mcintosh/white junction is preserved. The ventricles appear normal. No focal abnormality is seen. There is some mucosal thickening in the ethmoid and frontal sinuses. IMPRESSION: No evidence of an acute intracranial abnormality. Mild ethmoid and frontal sinus inflammatory change. Dictated by: Dictated on workstation # [id number]
[2017-06-06] MEDS ORDERED: AMOX-358 PO (14:49)
[2017-06-06 14:54] VITALS: BP 110/81
== END 2017-06-06 14:54 | disposition home or self-care (01) ==
LOC: EDUNIT# 13:52 → ER 13:53
DX: S06.0X0A Concussion without loss of consciousness, initial encounter (principal); S01.131A Puncture wound without foreign body of right eyelid and periocular area, initial encounter; J32.9 Chronic sinusitis, unspecified; R55 Syncope and collapse; I10 Essential (primary) hypertension; F32.9 Major depressive disorder, single episode, unspecified; K21.9 Gastro-esophageal reflux disease without esophagitis; Z87.19 Personal history of other diseases of the digestive system; Z87.891 Personal history of nicotine dependence; Z23 Encounter for immunization; Z87.448 Personal history of other diseases of urinary system; W26.8XXA Contact with other sharp object(s), not elsewhere classified, initial encounter; Y92.009 Unspecified place in unspecified non-institutional (private) residence as the place of occurrence of the external cause; Y93.G3 Activity, cooking and baking
CPT/HCPCS: 12011; 70450; 90471; 90715

== ENCOUNTER 2017-06-14 18:44 | Emergency (ER) | payer BC ==
[~2017-06-14] VITALS: Ht 180.3 cm; Wt 99.8 kg
[~2017-06-14 18:44] MED LIST changes: +AMIT10TA6; +AMOX-358 PO; +ZOLP12.546
--- OUTSIDE RECORDS SUMMARY | 2017-06-14 18:56 | XMS REPORT | Continuity of Care Document ---
Author Author [facility] Organization [facility] Address Unknown Phone Unavailable Allergies Active Description Code Type Severity Reaction Onset Reported/Identified Relationship to Patient Clinical Status Yes No Known Drug Allergies [id number] Drug Allergy Unknown N/A 10/25/2010 Medications There [...] Ot M54.6 PAIN IN THORACIC SPINE 03/17/2016 ABE CARUSO MD Ot M54.2 CERVICALGIA 03/17/2016 ABE [...] 07/29/2016 RORY DOYLE MD Ot Z79.899 OTHER LONGTERM (CURRENT) DRUG THERAPY 07/31/2016 RORY DOYLE MD [...] 07/31/2016 RORY DOYLE MD Ot Z79.899 OTHER INSURANCE ACCOUNT EXECUTIVE (CURRENT) DRUG THERAPY 07/31/2016 RORY DOYLE MD [...] 07/31/2016 RORY DOYLE MD Ot Z79.899 OTHER LONGTERM (CURRENT) DRUG THERAPY 01/11/2017 ZULY HICKEY, ABE Little Ot M54.2 CERVICALGIA 01/11/2017 CARUSO MD, ABE D Ot M54.5 LOW BACK PAIN 01/11/2017 ABE CARUSO MD Ot M54.6 PAIN IN THORACIC SPINE 01/11/2017 CRISELDA ROMERO MD, Ot M54.6 PAIN IN THORACIC SPINE 06/06/2017 MIGUEL ANGEL SAHU APRN Ot F32.9 MAJOR DEPRESSIVE DISORDER, SINGLE EPISOD 06/06/2017 MIGUEL ANGEL SAHU APRN Ot I10 ESSENTIAL (PRIMARY) HYPERTENSION 06/06/2017 MIGUEL ANGEL SAHU APRN Ot J32.9 CHRONIC SINUSITIS, UNSPECIFIED 06/06/2017 MIGUEL ANGEL SAHU APRN Ot K21.9 GASTRO-ESOPHAGEAL REFLUX DISEASE WITHOUT 06/06/2017 MIGUEL ANGEL SAHU APRN Ot R55 SYNCOPE AND COLLAPSE 06/06/2017 MIGUEL ANGEL SAHU APRN Ot S01.131A PNCTR W/O FB OF RIGHT EYELID AND PERIOCU 06/06/2017 MIGUEL ANGEL SAHU APRN Ot S06.0X0A CONCUSSION WITHOUT LOSS OF CONSCIOUSNESS 06/06/2017 MIGUEL ANGEL SAHU APRN Ot W26.8XXA CONTACT WITH OTHER SHARP OBJECT(S), NEC, 06/06/2017 MIGUEL ANGEL SAHU APRN Ot Y92.[address] [facility] (PRIVATE 06/06/2017 MIGUEL ANGEL SAHU APRN Ot Y93.G3 ACTIVITY, COOKING AND BAKING 06/06/2017 MIGUEL ANGEL SAHU APRN Ot Z23 ENCOUNTER FOR IMMUNIZATION 06/06/2017 MIGUEL ANGEL SAHU APRN Ot Z87.19 PERSONAL HISTORY OF OTHER DISEASES OF TH 06/06/2017 MIGUEL ANGEL SAHU APRN Ot Z87.448 PERSONAL HISTORY OF OTHER DISEASES OF UR 06/06/2017 MIGUEL ANGEL SAHU APRN Ot Z87.891 PERSONAL HISTORY OF NICOTINE DEPENDENCE 06/06/2017 ABE CARUSO MD Ot M54.2 CERVICALGIA 06/06/2017 ABE CARUSO MD Ot M54.5 LOW BACK PAIN 06/06/2017 ABE CARUSO MD Ot M54.6 PAIN IN THORACIC SPINE 06/06/2017 CRISELDA ROMERO MD Ot M54.6 PAIN IN THORACIC SPINE 06/08/2017 MIGUEL ANGEL SAHU APRN Ot F32.9 MAJOR DEPRESSIVE DISORDER, SINGLE EPISOD 06/08/2017 MIGUEL ANGEL SAHU APRN Ot I10 ESSENTIAL (PRIMARY) HYPERTENSION 06/08/2017 MIGUEL ANGEL SAHU APRN Ot J32.9 CHRONIC SINUSITIS, UNSPECIFIED 06/08/2017 MIGUEL ANGEL SAHU APRN Ot K21.9 GASTRO-ESOPHAGEAL REFLUX DISEASE WITHOUT 06/08/2017 MIGUEL ANGEL SAHU APRN Ot R55 SYNCOPE AND COLLAPSE 06/08/2017 MIGUEL ANGEL SAHU APRN Ot S01.131A PNCTR W/O FB OF RIGHT EYELID AND PERIOCU 06/08/2017 MIGUEL ANGEL SAHU APRN Ot S06.0X0A CONCUSSION WITHOUT LOSS OF CONSCIOUSNESS 06/08/2017 MIGUEL ANGEL SAHU APRN Ot W26.8XXA CONTACT WITH OTHER SHARP OBJECT(S), NEC, 06/08/2017 MIGUEL ANGEL SAHU APRN Ot Y92.[address] IN [email or web address] NON[facility] 06/08/2017 MGIUEL ANGEL SAHU APRN Ot Y93.G3 ACTIVITY, COOKING AND BAKING 06/08/2017 MIGUEL ANGEL SAHU APRN Ot Z23 ENCOUNTER FOR IMMUNIZATION 06/08/2017 MIGUEL ANGEL SAHU APRN Ot Z87.19 PERSONAL HISTORY OF OTHER DISEASES OF TH 06/08/2017 MIGUEL ANGEL SAHU APRN Ot Z87.448 PERSONAL HISTORY OF OTHER DISEASES OF UR 06/08/2017 MIGUEL ANGEL SAHU APRN Ot Z87.891 PERSONAL HISTORY OF NICOTINE DEPENDENCE 06/08/2017 MIGUEL ANGEL SAHU APRN Ot F32.9 MAJOR DEPRESSIVE DISORDER, SINGLE EPISOD 06/08/2017 MIGUEL ANGEL SAHU APRN Ot I10 ESSENTIAL (PRIMARY) HYPERTENSION 06/08/2017 MIGUEL ANGEL SAHU APRN, Ot J32.9 CHRONIC SINUSITIS, UNSPECIFIED 06/08/2017 MIGUEL ANGEL SAHU APRN Ot K21.9 GASTRO-ESOPHAGEAL REFLUX DISEASE WITHOUT 06/08/2017 MIGUEL ANGEL SAHU APRN Ot R55 SYNCOPE AND COLLAPSE 06/08/2017 MIGUEL ANGEL SAHU APRN Ot S01.131A PNCTR W/O FB OF RIGHT EYELID AND PERIOCU 06/08/2017 MIGUEL ANGEL SAHU APRN Ot S06.0X0A CONCUSSION WITHOUT LOSS OF CONSCIOUSNESS 06/08/2017 MIGUEL ANGEL SAHU APRN Ot W26.8XXA CONTACT WITH OTHER SHARP OBJECT(S), NEC, 06/08/2017 MIGUEL ANGEL SAHU APRN Ot Y92.[address] IN [facility] NON-INSTITUT (PRIVATE 06/08/2017 MIGUEL ANGEL SAHU APRN Ot Y93.G3 ACTIVITY, COOKING AND BAKING 06/08/2017 MIGUEL ANGEL SAHU APRN Ot Z23 ENCOUNTER FOR IMMUNIZATION 06/08/2017 MIGUEL ANGEL SAHU APRN Ot Z87.19 PERSONAL HISTORY OF OTHER DISEASES OF TH 06/08/2017 MIGUEL ANGEL SAHU APRN Ot Z87.448 PERSONAL HISTORY OF OTHER DISEASES OF UR 06/08/2017 MIGUEL ANGEL SAHU APRN Ot Z87.891 PERSONAL HISTORY OF NICOTINE DEPENDENCE 06/09/2017 ZULY HICKEY, ABE Little Ot M54.2 CERVICALGIA 06/09/2017 ZULY HICKEY, ABE Little Ot M54.5 LOW BACK PAIN 06/09/2017 ZULY HICKEY, ABE Little Ot M54.6 PAIN IN THORACIC SPINE 06/09/2017 HEATHER HICKEY, CRISELDA Brooke Ot M54.6 PAIN IN THORACIC SPINE Procedures [...] Status Pt. Type Provider Facility Loc./Unit Complaint [id number] 06/06/2017 13:53:00 06/06/2017 14:54:00 DIS Emergency MIGUEL ANGEL SAHU APRN [facility] ER FALL,RT EYE LAC [id number] 07/29/2016 13:00:00 07/29/2016 16:20:00 DIS Emergency RORY DOYLE MD [facility] ER FATIGUE,DIZZINESS, BONE PAIN/MULTIPLE COMPLAINTS [id number] 12/22/2015 13:10:00 12/22/2015 23:59:59 CLS Outpatient CRISELDA ROMERO MD [facility] RAD PAIN IN THORACIC SPINE [id number] 07/13/2015 09:31:00 07/13/2015 23:59:59 CLS Outpatient ZULY HICKEY, ABE Little [facility] RAD NECK PAIN, MID BACK AND LUMBAR PAIN [id number] 05/25/2015 10:56:00 05/25/2015 13:49:00 DIS Emergency LISA NAJERA MD [facility] ER HTN/BACK PAIN [id number] 06/19/2013 14:04:00 06/19/2013 17:28:00 DIS Emergency BEAU SCHERER DO [facility] ER POSS FOOD POISONING [id number] 10/25/2010 21:04:00 Document Registration [id number] 01/25/2010 15:02:00 Document Registration
[2017-06-14 19:19] VITALS: BP 123/78
== END 2017-06-14 19:19 | disposition home or self-care (01) ==
LOC: EDUNIT# 18:44 → ER 18:45
DX: S01.81XD Laceration without foreign body of other part of head, subsequent encounter (principal); X58.XXXD Exposure to other specified factors, subsequent encounter

== ENCOUNTER 2018-06-09 07:41 | Emergency (ER) | payer BC, OTHER ==
[~2018-06-09] VITALS: Ht 180.3 cm; Wt 95.3 kg
--- OUTSIDE RECORDS SUMMARY | 2018-06-09 07:49 | XMS REPORT | Continuity of Care Document ---
Author Organization Unknown Address Unknown Allergies Active Description Code Type Severity Reaction Onset Reported/Identified Relationship to Patient Clinical Status Yes No Known Drug Allergies [id number] Drug Allergy Unknown N/A 10/25/2010 Medications There [...] 05/26/2015 LISA NAJERA MD Ot F10.239 05/26/2015 LISA NAJERA MD Ot I10 05/26/2015 DANIA HICKEY, LISA D Ot M54.12 05/26/2015 DANIA HICKEY, LISA D Ot M54.16 05/26/2015 DANIA HICKEY, LISA D Ot Z87.891 06/05/2015 DANIA HICKEY, LISA D Ot F10.239 06/05/2015 DANIA HICKEY, LISA D Ot I10 06/05/2015 DANIA HICKEY, LISA D Ot M54.12 06/05/2015 DANIA HICKEY, LISA D Ot M54.16 06/05/2015 DANIA HICKEY, LISA D Ot Z87.891 07/14/2015 ZULY HICKEY, ABE Little Ot M54.2 CERVICALGIA 07/14/2015 ABE CARUSO MD Ot M54.5 LOW BACK PAIN 07/14/2015 ZULY HICKEY, ABE Little Ot M54.6 PAIN IN THORACIC SPINE 07/29/2015 [...] ABE CARUSO MD Ot M54.2 CERVICALGIA 07/29/2016 AEB CARUSO MD Ot M54.5 LOW BACK PAIN [...] 07/29/2016 RORY DOYLE MD Ot Z79.899 OTHER SNF (CURRENT) DRUG THERAPY 07/31/2016 RORY DOYLE MD [...] 07/31/2016 RORY DOYLE MD Ot Z79.899 OTHER SNF (CURRENT) DRUG THERAPY 07/31/2016 RORY DOYLE MD [...] 07/31/2016 RORY DOYLE MD Ot Z79.899 OTHER SNF (CURRENT) DRUG THERAPY 01/11/2017 ABE CARUSO MD Ot M54.2 CERVICALGIA 01/11/2017 ABE CARUSO MD Ot M54.5 LOW BACK PAIN 01/11/2017 ABE [...] Y92.[address] IN [facility] NON-INSTITUT (PRIVATE 06/06/2017 MIGUEL ANGEL SAHU APRN [...] SYNCOPE AND COLLAPSE 06/08/2017 MIGUEL ANGEL SAHU APRN, Ot S01.131A PNCTR W/O FB OF RIGHT EYELID AND PERIOCU 06/08/2017 MIGUEL ANGEL SAHU APRN Ot S06.0X0A CONCUSSION WITHOUT LOSS OF CONSCIOUSNESS 06/08/2017 MIGUEL ANGEL SAHU APRN Ot W26.8XXA CONTACT WITH OTHER SHARP OBJECT(S), NEC, 06/08/2017 MIGUEL ANGEL SAHU APRN Ot Y92.[address] [facility] [address] IN [facility] NON[facility] 06/08/2017 MIGUEL ANGEL SAHU APRN Ot Y93.G3 [...] SAHU APRN Ot Y92.[address] IN [facility] NON-INSTITUT (PRIVATE 06/08/2017 MIGUEL ANGEL SAHU APRN Ot Y93.G3 ACTIVITY, COOKING AND BAKING 06/08/2017 MIGUEL ANGEL SAHU APRN Ot Z23 ENCOUNTER FOR IMMUNIZATION 06/08/2017 MIGUEL ANGEL SAHU APRN Ot Z87.19 PERSONAL HISTORY OF OTHER DISEASES OF 06/08/2017 MIGUEL ANGEL SAHU APRN Ot Z87.448 [...] Brooke Ot M54.6 PAIN IN THORACIC SPINE 06/12/2017 MIGUEL ANGEL SAHU APRN Ot F32.9 MAJOR DEPRESSIVE DISORDER, SINGLE EPISOD 06/12/2017 MIGUEL ANGEL SAHU APRN Ot I10 ESSENTIAL (PRIMARY) HYPERTENSION 06/12/2017 MIGUEL ANGEL SAHU APRN Ot J32.9 CHRONIC SINUSITIS, UNSPECIFIED 06/12/2017 MIGUEL ANGEL SAHU APRN Ot K21.9 GASTRO-ESOPHAGEAL REFLUX DISEASE WITHOUT 06/12/2017 MIGUEL ANGEL SAHU APRN Ot R55 SYNCOPE AND COLLAPSE 06/12/2017 MIGUEL ANGEL SAHU APRN Ot S01.131A PNCTR W/O FB OF RIGHT EYELID AND PERIOCU 06/12/2017 MIGUEL ANGEL SAHU APRN Ot S06.0X0A CONCUSSION WITHOUT LOSS OF CONSCIOUSNESS 06/12/2017 MIGUEL ANGEL SAHU APRN Ot W26.8XXA CONTACT WITH OTHER SHARP OBJECT(S), NEC, 06/12/2017 MIGUEL ANGEL SAHU APRN Ot Y92.[address] [facility] [address] IN [facility] NON-[facility] (PRIVATE 06/12/2017 MIGUEL ANGEL SAHU APRN Ot Y93.G3 ACTIVITY, COOKING AND BAKING 06/12/2017 MIGUEL ANGEL SAHU APRN Ot Z23 ENCOUNTER FOR IMMUNIZATION 06/12/2017 MIGUEL ANGEL SAHU APRN Ot Z87.19 PERSONAL HISTORY OF OTHER DISEASES OF 06/12/2017 MIGUEL ANGEL SAHU APRN Ot Z87.448 PERSONAL HISTORY OF OTHER DISEASES OF UR 06/12/2017 MIGUEL ANGEL SAHU VALET CASHIER Ot Z87.891 PERSONAL HISTORY OF NICOTINE DEPENDENCE 06/14/2017 CATHI BRIDGES MD Ot S01.81XD LACERATION W/O FOREIGN BODY OF OTH PART 06/14/2017 CATHI BRIDGES MD Ot X58.XXXD EXPOSURE TO OTHER SPECIFIED FACTORS, SUB 06/16/2017 CATHI BRIDGES MD Ot S01.81XD LACERATION W/O FOREIGN BODY OF OTH PART 06/16/2017 CATHI BRIDGES MD Ot X58.XXXD EXPOSURE TO OTHER SPECIFIED FACTORS, SUB 12/08/2017 ABE CARUSO MD Ot M54.2 CERVICALGIA 12/08/2017 ABE CARUSO MD Ot M54.5 LOW BACK PAIN 12/08/2017 ABE CARUSO MD Ot M54.6 PAIN IN THORACIC SPINE 12/08/2017 CRISELDA ROMERO MD Ot M54.6 PAIN IN THORACIC SPINE 12/08/2017 ABE CARUSO MD Ot M54.2 CERVICALGIA 12/08/2017 ABE CARUSO MD Ot M54.5 LOW BACK PAIN 12/08/2017 ABE CARUSO MD Ot M54.6 PAIN IN THORACIC SPINE 12/08/2017 CRISELDA ROMERO MD Ot M54.6 PAIN IN THORACIC SPINE 12/08/2017 ABE CARUSO MD Ot M54.2 CERVICALGIA 12/08/2017 ABE CARUSO MD Ot M54.5 LOW BACK PAIN 12/08/2017 ABE CARUSO MD Ot M54.6 PAIN IN THORACIC SPINE 12/08/2017 CRISELDA ROMERO MD Ot M54.6 PAIN IN THORACIC SPINE 06/09/2018 ABE CARUSO MD Ot M54.2 CERVICALGIA 06/09/2018 ABE CARUSO MD Ot M54.5 LOW BACK PAIN 06/09/2018 ABE CARUSO MD Ot M54.6 PAIN IN THORACIC SPINE 06/09/2018 CRISELDA ROMERO MD Ot M54.6 PAIN IN [...] Status Pt. Type Provider Facility Loc./Unit Complaint [id number] 06/14/2017 18:45:00 06/14/2017 19:19:00 DIS Emergency CATHI BRIDGES MD [facility] ER STITCH REMOVAL [id number] 06/06/2017 13:53:00 06/06/2017 14:54:00 DIS Emergency MIGUEL ANGEL SAHU APRN [facility] ER FALL,RT EYE LAC [id number] 07/29/2016 13:00:00 07/29/2016 16:20:00 DIS Emergency RORY DOYLE MD [facility] ER FATIGUE,DIZZINESS, BONE PAIN/MULTIPLE COMPLAINTS [id number] 12/22/2015 13:10:00 12/22/2015 23:59:59 CLS Outpatient CRISELDA ROMERO MD [facility] RAD PAIN IN THORACIC SPINE [id number] 07/13/2015 09:31:00 07/13/2015 23:59:59 CLS Outpatient ABE CARUSO MD [facility] RAD NECK PAIN, MID BACK AND LUMBAR PAIN [id number] 05/25/2015 10:56:00 05/25/2015 13:49:00 DIS Emergency LISA NAJERA MD [facility] ER HTN/BACK PAIN [id number] 06/19/2013 14:04:00 06/19/2013 17:28:00 DIS Emergency GILMERBEAU Lama DO K [facility] ER POSS FOOD POISONING [id number] 06/09/2018 07:43:00 ACT Emergency ABE LLANES MD [facility] ER ABDOMANAL PAIN [id number] 10/25/2010 21:04:00 Document Registration [id number] 01/25/2010 15:02:00 Document Registration
--- NOTE | 2018-06-09 08:13 | ED Abdominal Pain ---
General Stated Complaint: ABDOMANAL PAIN Source of Information: Patient, Family Exam Limitations: No Limitations History of Present Illness Date Seen by Provider: Jun 09, 2018 Time Seen by Provider: 08:08 Initial Comments This is a 2-year-old white male presents with sudden lower abdominal pain severe and sharp in nature that awoke him from sleep shortly prior to presentation to the emergency department this morning. The patient has had no associated nausea, vomiting, dysuria, hematuria, change in stools, radiation of his infraumbilical sharp midline pain, similar episodes in the past, or other remarkable complaint. 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 Patient has subsequently not had alcohol. He denies recreational drugs. He is a smoker. Patient's past medical history includes hypertension. He is under the care of Dr. Lora. Allergies and Home Medications Allergies Coded Allergies: No Known Drug Allergies (Unverified , 10/25/10) Home Medications Amoxicillin/Potassium Clav 1 Each Tablet, 1 EACH PO BID Prescribed by: MIGUEL ANGEL SAHU on 06/06/17 1449 Lactulose 20 Gm/30 Ml Solution, 20 GM PO TID Prescribed by: RORY MCKEON on 07/29/16 1615 Lisinopril 10 Mg Tablet, 10 MG PO DAILY Prescribed by: LISA NAJERA on 05/25/15 1338 Oxycodone HCl 10 Mg Tab.er.12h, 10 MG PO Q12H PRN for PAIN Prescribed by: LISA NAJERA on 05/25/15 1338 Pantoprazole Sodium 20 Mg Tablet.dr, 20 MG PO DAILY, (Reported) Zolpidem Tartrate 12.5 Mg Tab.mphase, 12.5 MG PO HS, (Reported) Patient Home Medication List Home Medication List Reviewed: Yes Review of Systems Review of Systems Constitutional: No chills EENTM: No Blurred Vision Respiratory: Denies Cough Cardiovascular: Denies Chest Pain Gastrointestinal: Abdominal Pain; Denies Diarrhea, Denies Nausea, Denies Rectal Bleeding, Denies Vomiting Genitourinary: Denies Burning, Denies Drainage, Denies Frequency Musculoskeletal: No back pain Skin: No rash Psychiatric/Neurological: No Symptoms Reported Endocrine: No Symptoms Reported Hematologic/Lymphatic: No Symptoms Reported Past Qpkhwfu-Yitmnh-Pyzxhr Hx Past Med/Social Hx: Reviewed Nursing Past Med/Soc Hx Patient Social History Alcohol Beverage of Choice: Beer Type Used: Cigarettes Former Smoker, Quit: Jul 28, 2009 Recent Foreign Travel: No Contact w/Someone Who Travel: No Recent Hopitalizations: No Seasonal Allergies Seasonal Allergies: Yes Past Medical History Surgeries: Yes (CYST REMOVAL, CARPAL TUNNEL, ULNAR NERVE RELEASE) Orthopedic Respiratory: No Cardiac: Yes Hypertension, Irregular Heartbeat Neurological: Yes Spinal Cord Injury, TIA Genitourinary: No Gastrointestinal: Yes Gastroesophageal Reflux, Hepatitis, Irritable Bowel Musculoskeletal: Yes Chronic Back Pain Endocrine: No 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 oz. 99.758601uo; 28.12 BMI Method:Stated General Appearance: WD/WN, severe distress HEENT: normal ENT inspection Neck: normal inspection Respiratory: lungs clear Cardiovascular: regular rate, rhythm Gastrointestinal: guarding (in the midline in the suprapubic area.), tenderness Extremities: normal range of motion, normal inspection Back: normal inspection Male: normal genitalia Neurologic/Psychiatric: no motor/sensory deficits, alert, normal mood/affect Skin: normal color, warm/dry Procedures/Interventions Suture Size: 5-0 Progress/Results/Core Measures Results/Orders Lab Results Laboratory Tests Test 06/09/18 08:08 06/09/18 08:39 Range/Units White Blood Count 6.2 4.3-11.0 10^3/uL Red Blood Count 4.93 4.35-5.85 10^6/uL Hemoglobin 15.1 13.3-17.7 G/DL Hematocrit 43 40-54 % Mean Corpuscular Volume 87 80-99 FL Mean Corpuscular Hemoglobin 31 25-34 PG Mean Corpuscular Hemoglobin Concent 35 32-36 G/DL Red Cell Distribution Width 13.4 10.0-14.5 % Platelet Count 257 130-400 10^3/uL Mean Platelet Volume 9.9 7.4-10.4 FL Neutrophils (%) (Auto) 61 42-75 % Lymphocytes (%) (Auto) 28 12-44 % Monocytes (%) (Auto) 8 0-12 % Eosinophils (%) (Auto) 3 0-10 % Basophils (%) (Auto) 1 0-10 % Neutrophils # (Auto) 3.8 1.8-7.8 X 10^3 Lymphocytes # (Auto) 1.8 1.0-4.0 X 10^3 Monocytes # (Auto) 0.5 0.0-1.0 X 10^3 Eosinophils # (Auto) 0.2 0.0-0.3 10^3/uL Basophils # (Auto) 0.0 0.0-0.1 10^3/uL Sodium Level 142 135-145 MMOL/L Potassium Level 3.7 3.6-5.0 MMOL/L Chloride Level 104 98-107 MMOL/L Carbon Dioxide Level 29 21-32 MMOL/L Anion Gap 9 5-14 MMOL/L Blood Urea Nitrogen 11 7-18 MG/DL Creatinine 0.87 0.60-1.30 MG/DL Estimat Glomerular Filtration Rate > 60 BUN/Creatinine Ratio 13 Glucose Level 109 H 70-105 MG/DL Calcium Level 10.3 H 8.5-10.1 MG/DL Corrected Calcium 8.5-10.1 MG/DL Total Bilirubin 0.5 0.1-1.0 MG/DL Aspartate Amino Transf (AST/SGOT) 18 5-34 U/L Alanine Aminotransferase (ALT/SGPT) 17 0-55 U/L Alkaline Phosphatase 75 40-136 U/L Total Protein 7.5 6.4-8.2 GM/DL Albumin 4.7 H 3.2-4.5 GM/DL Lipase 20 8-78 U/L Urine Color YELLOW Urine Clarity CLEAR Urine pH 7 5-9 Urine Specific Strum 1.015 L 1.016-1.022 Urine Protein NEGATIVE NEGATIVE Urine Glucose (UA) NEGATIVE NEGATIVE Urine Ketones NEGATIVE NEGATIVE Urine Nitrite NEGATIVE NEGATIVE Urine Bilirubin NEGATIVE NEGATIVE Urine Urobilinogen NORMAL NORMAL MG/DL Urine Leukocyte Esterase NEGATIVE NEGATIVE Urine RBC (Auto) NEGATIVE NEGATIVE Urine RBC NONE /HPF Urine WBC NONE /HPF Urine Crystals NONE /LPF Urine Bacteria NEGATIVE /HPF Urine Casts NONE /LPF Urine Mucus NEGATIVE /LPF Urine Culture Indicated NO My Orders Orders - ABE LLANES MD Cbc With Automated Diff (06/09/18 08:06) Comprehensive Metabolic Panel (06/09/18 08:06) Lipase (06/09/18 08:06) Ua Culture If Indicated (06/09/18 08:06) Ct Abd/Pelvis Wo(Kidney Stone) (06/09/18 08:06) Ns Iv 1000 Ml (Sodium Chloride 0.9%) (06/09/18 08:15) Vital Signs/I&O 06/09/18 07:55 Temp 96.8 Pulse 76 Resp 14 B/P (MAP) 125/96 (106) Pulse Ox 100 O2 Delivery Room Air Progress Progress Note : Time: 10:08 Progress Note While in the emergency department patient's abdominal pain spontaneously abated. The patient's radiographic and laboratory evaluation demonstrating constipation on the CT of the abdomen and pelvis. The remainder of the laboratory exam including urinalysis, CBC, complete metabolic panel, and lipase were unremarkable. I discussed findings with patient and his . I recommended a Fleet's enema at home to see if he could relieve the constipation. Most importantly I asked the patient to return to emergency department should his abdominal pain return. I asked that he follow-up with his caregiver on Monday for further evaluation. Departure Impression Primary Impression: Constipation Qualified Codes: K59.00 - Constipation, unspecified Disposition: HOME, SELF-CARE Condition: Improved Departure-Patient Inst. Decision time for Depature: 10:11 Referrals: ABE LORA MD (PCP/Family) Primary Care Physician Patient Instructions: Constipation in Adults Add. Discharge Instructions: Fleets oil retention enema. Close follow-up with Dr. Lora Monday. Return if any problems or questions. ABE LLANES MD Jun 09, 2018 08:13
[2018-06-09 08:15] LABS: BASOPHILS % (AUTO) 1 % (0-10); EOSINOPHILS # (AUTO) 0.2 10^3/uL (0.0-0.3); EOSINOPHILS % (AUTO) 3 % (0-10); HEMATOCRIT 43 % (40-54); HEMOGLOBIN 15.1 G/DL (13.3-17.7); LYMPHOCYTES # (AUTO) 1.8 X 10^3 (1.0-4.0); LYMPHOCYTES % (AUTO) 28 % (12-44); MEAN CORPUSCULAR HEMOGLOBIN 31 PG (25-34); MEAN CORPUSCULAR HGB CONC 35 G/DL (32-36); MEAN CORPUSCULAR VOLUME 87 FL (80-99); MEAN PLATELET VOLUME 9.9 FL (7.4-10.4); MONOCYTES # (AUTO) 0.5 X 10^3 (0.0-1.0); MONOCYTES % (AUTO) 8 % (0-12); NEUTROPHILS # (AUTO) 3.8 X 10^3 (1.8-7.8); NEUTROPHILS % (AUTO) 61 % (42-75); PLATELET COUNT 257 10^3/uL (130-400); RED CELL DISTRIBUTION WIDTH 13.4 % (10.0-14.5); WHITE BLOOD COUNT 6.2 10^3/uL (4.3-11.0)
[2018-06-09] MEDS ORDERED: NS IV 1000 ML 1,000 ML IV SCH (08:15)
--- NOTE | 2018-06-09 08:33 | Diagnostic Imaging Report ---
PROCEDURE: CT urinary tract, rule out kidney stone. TECHNIQUE: Multiple contiguous axial images were obtained through the abdomen and pelvis without the use of intravenous contrast. Auto Exposure Controls were utilized during the CT exam to meet ALARA standards for radiation dose reduction. INDICATION: Lower abdominal pain. Constipation. COMPARISON: None FINDINGS: Lung bases are clear. The liver, gallbladder, pancreas, spleen, adrenals, kidneys, collecting systems, appendix and bladder are negative on this noncontrast exam. No free intraperitoneal air or fluid. No lymphadenopathy. No evidence of bowel obstruction. There is a large amount of stool throughout the colon. Osseous structures are intact. IMPRESSION: 1. No acute CT findings in the abdomen or pelvis. 2. Large amount of stool throughout the colon consistent with constipation. Dictated by: Dictated on workstation # [id number]
[2018-06-09 08:34] LABS: ALANINE AMINOTRANSFERASE 17 U/L (0-55); ALBUMIN 4.7 GM/DL (3.2-4.5); ALKALINE PHOSPHATASE 75 U/L (40-136); BILIRUBIN,TOTAL 0.5 MG/DL (0.1-1.0); BUN/CREATININE RATIO 13; CALCIUM 10.3 MG/DL (8.5-10.1); CARBON DIOXIDE 29 MMOL/L (21-32); CHLORIDE 104 MMOL/L (98-107); CREATININE SERUM 0.87 MG/DL (0.60-1.30); GFR ESTIMATED > 60; GLUCOSE 109 MG/DL (70-105); LIPASE 20 U/L (8-78); POTASSIUM 3.7 MMOL/L (3.6-5.0); SODIUM 142 MMOL/L (135-145); TOTAL PROTEIN 7.5 GM/DL (6.4-8.2)
[2018-06-09 08:46] LABS: BILIRUBIN,URINE NEGATIVE (NEGATIVE); CLARITY,URINE CLEAR; COLOR,URINE YELLOW; GLUCOSE, URINE (UA) NEGATIVE (NEGATIVE); KETONES,URINE NEGATIVE (NEGATIVE); LEUKOCYTE ESTERASE ,URINE NEGATIVE (NEGATIVE); NITRITE,URINE NEGATIVE (NEGATIVE); PH,URINE 7 (5-9); PROTEIN,URINE NEGATIVE (NEGATIVE); UROBILINOGEN,URINE NORMAL (NORMAL)
[2018-06-09 08:58] LABS: BACTERIA,URINE NEGATIVE /HPF
[2018-06-09 10:34] VITALS: BP 125/96
== END 2018-06-09 10:33 | disposition home or self-care (01) ==
LOC: EDUNIT# 07:41 → ER 07:43
DX: K59.00 Constipation, unspecified (principal); K21.9 Gastro-esophageal reflux disease without esophagitis; I10 Essential (primary) hypertension; F32.9 Major depressive disorder, single episode, unspecified; K58.9 Irritable bowel syndrome, unspecified; F17.210 Nicotine dependence, cigarettes, uncomplicated; Z86.73 Personal history of transient ischemic attack (TIA), and cerebral infarction without residual deficits; Z87.19 Personal history of other diseases of the digestive system; Z87.891 Personal history of nicotine dependence
CPT/HCPCS: 36415; 74176; 80053; 81000; 83690; 85025

== ENCOUNTER 2022-01-04 09:00 | Outpatient (RCR) | payer SELFPAY ==
[~2022-01-04 09:00] MED LIST changes: -AMIT10TA6; +AMT10T; -LISI10TA2 PO; +LISI10TA25 PO; +NF-ZOL12.5; +PANT20TA18 PO; -PANT20TA3 PO; -ZOLP12.546
== END 2022-01-26 | disposition home or self-care (01) ==
LOC: LAB 09:00
PROVIDERS: ATTEND Urology
DX: Z98.52 Vasectomy status (principal)
CPT/HCPCS: 89321